=== PATIENT | male | born 1965 | race Caucasian/White ===

== ENCOUNTER → 2016-11-23 | Outpatient (CLI) | payer OTHER ==
[~2016-11-23] VITALS: Ht 172.7 cm; Wt 108.8 kg
[~2016-11-23] MED LIST: ALEVE220 MG PO; FLOMAX0.4 MG PO; GLUCOPHAGE500 MG PO; LOSARTAN POTASS25 MG PO; NORVASC5 MG PO; TACLONEX SUSPEN60 GM TP; XARELTO15 MG PO; XARELTO20 MG PO
== END | disposition home or self-care (01) ==
LOC: AMB 07:00
PROC: 0DJD8ZZ Inspection of Lower Intestinal Tract, Via Natural or Artificial Opening Endoscopic (ICD-10-PCS; principal; 2016-11-23)
DX: Z12.11 Encounter for screening for malignant neoplasm of colon (principal); K57.30 Diverticulosis of large intestine without perforation or abscess without bleeding; K64.8 Other hemorrhoids; Z86.711 Personal history of pulmonary embolism; Z79.01 Long term (current) use of anticoagulants; R00.0 Tachycardia, unspecified
CPT/HCPCS: J2250; J3010

== ENCOUNTER 2016-12-06 11:47 | Inpatient (IN) | payer OTHER ==
[~2016-12-06] VITALS: Ht 172.7 cm; Wt 108.2 kg
[2016-12-06 12:24] LABS: MCH 26.6 PG (29.0-34.0); MCHC 31.7 G/DL (30.0-36.0); MCV 83.9 FL (86-99); MEAN PLAT.VOLUME 9.3 uM^3 (9.0-12.4); PLATELET COUNT 191 K/uL (156-360); RBC DIS.WIDTH-SD 39.5 % (39-53)
[2016-12-06 12:26] LABS: WHITE BLOOD COUNT 19.4 K/uL (4.1-10.2)
[2016-12-06 12:35] LABS: PROTHROMBIN TIME 10.5 (9.2-11.2); PTT 26.1 (25-32)
[2016-12-06 12:36] LABS: CHLORIDE 108 mEq/L (99-109); POTASSIUM 4.7 mEq/L (3.7-5.4); SODIUM 141 mEq/L (136-147)
[2016-12-06 12:38] LABS: GLUCOSE 136 mg/dL (70-99)
[2016-12-06 12:39] LABS: ANION GAP 10 MEQ/L (2-14)
[2016-12-06 12:42] LABS: GFR ESTIMATE (CALCULATED) 48 mL/min/; UREA NITROGEN (BUN) 21 mg/dL (9-23)
[2016-12-06 12:46] LABS: TROP-I INTERPRETATION NEGATIVE; TROPONIN-I < 0.01 ng/mL (0.0-0.30)
[2016-12-06] MEDS ORDERED: NORVASC10 MG PO (14:36)
[2016-12-06 15:36] LABS: THEOPHYLLINE < 2.5 MCG/ML (10-20)
[2016-12-06 17:59] VITALS: BP 143/86
[2016-12-06 20:00] VITALS: BP 124/77
[2016-12-06 20:45] LABS: TROP-I INTERPRETATION NEGATIVE; TROPONIN-I < 0.01 ng/mL (0.0-0.30)
[2016-12-06 23:08] VITALS: BP 123/71
[2016-12-07 01:17] LABS: TROP-I INTERPRETATION NEGATIVE; TROPONIN-I 0.01 ng/mL (0.0-0.30)
[2016-12-07 03:43] LABS: HEMATOCRIT 40.6 % (38.0-50.0); MCV 84.2 FL (86-99); MEAN PLAT.VOLUME 9.7 uM^3 (9.0-12.4); PLATELET COUNT 186 K/uL (156-360); RBC DIS.WIDTH-CV 13.1 % (11.8-14.6); RED BLOOD COUNT 4.82 M/uL (4.00-5.50); WHITE BLOOD COUNT 19.2 K/uL (4.1-10.2)
[2016-12-07 04:12] VITALS: BP 106/57
[2016-12-07 08:00] VITALS: BP 130/83
[2016-12-07 13:17] VITALS: BP 135/84
[2016-12-07 17:06] LABS: INTER. NORMALIZED RATIO 1.1; PROTHROMBIN TIME 11.3 (9.2-11.2); PTT 47.4 (25-32)
[2016-12-07 18:31] VITALS: BP 133/80
[2016-12-07 19:25] VITALS: BP 138/87
[2016-12-07 23:35] VITALS: BP 130/82
[2016-12-07 23:46] LABS: INTER. NORMALIZED RATIO 1.1; PROTHROMBIN TIME 11.4 (9.2-11.2); PTT 55.5 (25-32)
[2016-12-08 04:26] VITALS: BP 137/80
[2016-12-08 06:48] LABS: EOSINOPHIL (%) 2.4 % (0-5); EOSINOPHIL COUNT 0.3 K/uL (0-0.3); HEMATOCRIT 40.9 % (38.0-50.0); IMMATURE GRANULOCYTE (%) 0.6 % (0.0-0.7); IMMATURE GRANULOCYTE COUNT 0.1 K/uL; INSTRUMENT ABS NEUTROPHIL CT 8.8 K/uL; LYMPHOCYTE COUNT 2.5 K/uL (1.0-2.8); MCH 26.3 PG (29.0-34.0); MCHC 31.1 G/DL (30.0-36.0); MCV 84.7 FL (86-99); MEAN PLAT.VOLUME 9.6 uM^3 (9.0-12.4); MONOCYTE (%) 6.5 % (3-12); MONOCYTE COUNT 0.8 K/uL (0-0.8); NEUTROPHIL (%) 70.3 % (45-76); NEUTROPHIL COUNT 8.8 K/uL (1.8-6.4); PLATELET COUNT 168 K/uL (156-360); RBC DIS.WIDTH-CV 12.8 % (11.8-14.6); RBC DIS.WIDTH-SD 39.4 % (39-53); RED BLOOD COUNT 4.83 M/uL (4.00-5.50)
[2016-12-08 06:51] LABS: WHITE BLOOD COUNT 12.6 K/uL (4.1-10.2)
[2016-12-08 07:07] LABS: ANION GAP 7 MEQ/L (2-14); CHLORIDE 107 MEQ/L (99-109); GFR ESTIMATE (CALCULATED) 56 mL/min/; GLUCOSE 108 mg/dL (70-99); POTASSIUM 4.2 MEQ/L (3.7-5.4); SAMPLE HEMOLYSIS CHECK 0; SAMPLE ICTERIC CHECK 0; SAMPLE LIPEMIA CHECK 0; SODIUM 139 MEQ/L (136-147); UREA NITROGEN (BUN) 16 mg/dL (9-23)
[2016-12-08 08:57] VITALS: BP 116/74
[2016-12-08 11:14] VITALS: BP 127/79
[2016-12-08 16:05] VITALS: BP 130/90
[2016-12-08 19:30] VITALS: BP 147/86
[2016-12-09 03:59] VITALS: BP 129/78
[2016-12-09 06:37] LABS: EOSINOPHIL (%) 1.8 % (0-5); EOSINOPHIL COUNT 0.2 K/uL (0-0.3); HEMATOCRIT 40.3 % (38.0-50.0); IMMATURE GRANULOCYTE (%) 0.6 % (0.0-0.7); IMMATURE GRANULOCYTE COUNT 0.1 K/uL; INSTRUMENT ABS NEUTROPHIL CT 8.7 K/uL; LYMPHOCYTE COUNT 2.9 K/uL (1.0-2.8); MCH 26.6 PG (29.0-34.0); MCHC 31.5 G/DL (30.0-36.0); MCV 84.3 FL (86-99); MEAN PLAT.VOLUME 9.8 uM^3 (9.0-12.4); MONOCYTE (%) 6.1 % (3-12); MONOCYTE COUNT 0.8 K/uL (0-0.8); NEUTROPHIL (%) 68.7 % (45-76); NEUTROPHIL COUNT 8.7 K/uL (1.8-6.4); PLATELET COUNT 179 K/uL (156-360); RBC DIS.WIDTH-CV 12.9 % (11.8-14.6); RBC DIS.WIDTH-SD 39.5 % (39-53); RED BLOOD COUNT 4.78 M/uL (4.00-5.50); WHITE BLOOD COUNT 12.7 K/uL (4.1-10.2)
[2016-12-09 06:48] LABS: INTER. NORMALIZED RATIO 1.1; PROTHROMBIN TIME 11.4 (9.2-11.2)
[2016-12-09 07:05] LABS: ANION GAP 9 MEQ/L (2-14); CHLORIDE 106 MEQ/L (99-109); GFR ESTIMATE (CALCULATED) > 59 mL/min/; GLUCOSE 107 mg/dL (70-99); POTASSIUM 4.1 MEQ/L (3.7-5.4); SAMPLE HEMOLYSIS CHECK 0; SAMPLE ICTERIC CHECK 0; SAMPLE LIPEMIA CHECK 0; SODIUM 139 MEQ/L (136-147); UREA NITROGEN (BUN) 16 mg/dL (9-23)
[2016-12-09 07:15] VITALS: BP 144/71
[2016-12-09 08:55] VITALS: BP 138/89
[2016-12-09 11:30] VITALS: BP 135/86
[2016-12-09] MEDS ORDERED: ELIQUIS5 MG PO (13:38)
== END 2016-12-09 16:18 | disposition home or self-care (01) | DRG 175 ==
LOC: EME 11:47 → 4EAST 14:16 → EDOF 14:16 → 4EAST 17:38
PROVIDERS: Internal Medicine; Nurse Practitioner Adult Health; Nurse Practitioner Family; Student in an Organized Health Care Education/Training Program
DX: I26.99 Other pulmonary embolism without acute cor pulmonale (principal); J96.01 Acute respiratory failure with hypoxia; I82.531 Chronic embolism and thrombosis of right popliteal vein; I12.9 Hypertensive chronic kidney disease with stage 1 through stage 4 chronic kidney disease, or unspecified chronic kidney disease; N18.3 Chronic kidney disease, stage 3 (moderate); R55 Syncope and collapse; J98.11 Atelectasis; Z86.711 Personal history of pulmonary embolism; Z79.01 Long term (current) use of anticoagulants
CPT/HCPCS: 71010; 71275; 80048; 80198; 81240 90; 83090 90; 83880; 84484; 85025; 85027; 85240 90; 85300 90; 85303 90; 85305 90; 85306 90; 85379; 85610; 85613 90; 85730; 85730 90; 86146 90; 86147 90; 93005; 93306; 93970; 94799; 99281; 99285; J7030

== ENCOUNTER 2016-12-12 10:29 | Inpatient (IN) | payer OTHER ==
[~2016-12-12] VITALS: Ht 172.7 cm; Wt 111.2 kg
[~2016-12-12 10:29] MED LIST changes: +ELIQUIS5 MG PO; +NORVASC10 MG PO
[2016-12-12 11:48] LABS: HEMATOCRIT 44.1 % (38.0-50.0); MCH 26.3 PG (29.0-34.0); MCHC 31.5 G/DL (30.0-36.0); MCV 83.4 FL (86-99); MEAN PLAT.VOLUME 9.7 uM^3 (9.0-12.4); PLATELET COUNT 217 K/uL (156-360); RBC DIS.WIDTH-SD 39.4 % (39-53); RED BLOOD COUNT 5.29 M/uL (4.00-5.50); WHITE BLOOD COUNT 25.5 K/uL (4.1-10.2)
[2016-12-12 12:23] LABS: TROP-I INTERPRETATION NEGATIVE; TROPONIN-I < 0.01 ng/mL (0.0-0.30)
[2016-12-12 13:05] LABS: ANION GAP 12 MEQ/L (2-14); CHLORIDE 106 MEQ/L (99-109); POTASSIUM 4.7 MEQ/L (3.7-5.4); SAMPLE HEMOLYSIS CHECK 0; SAMPLE ICTERIC CHECK 0; SAMPLE LIPEMIA CHECK 0; SODIUM 138 MEQ/L (136-147)
[2016-12-12 13:13] LABS: GFR ESTIMATE (CALCULATED) 52 mL/min/; GLUCOSE 193 mg/dL (70-99); UREA NITROGEN (BUN) 21 mg/dL (9-23)
[2016-12-12] MEDS ORDERED: ELIQUIS5 MG PO (15:48)
[2016-12-12 16:01] LABS: ADD MIUA? YES; BILIRUBIN NEGATIVE; BLOOD MODERATE; COLOR YELLOW ((YELLOW)); GLUCOSE (STRIP) 50; KETONES 5; LEUKOCYTES NEGATIVE; NITRITE NEGATIVE; PROTEIN (STRIP) 30; SPECIFIC GRAVITY 1.031 (1.000-1.030); UROBILINOGEN 0.2 MG/DL (0.2-1.0)
[2016-12-12 16:35] VITALS: BP 114/69
[2016-12-12 16:58] LABS: BACTERIA RARE /HPF; EPITHELIAL CELLS NONE SEEN /HPF; MUCUS TRACE /LPF; UCUL ADDED? NO; WHITE BLOOD CELLS 0-5 /HPF (0-5)
[2016-12-12 19:17] VITALS: BP 128/65
[2016-12-12 20:49] LABS: INFLUENZA A VIRAL ANTIGEN NEGATIVE; INFLUENZA B VIRAL ANTIGEN NEGATIVE
[2016-12-13] VITALS: BP 106/63
[2016-12-13 03:44] VITALS: BP 115/61
[2016-12-13 07:12] LABS: HEMATOCRIT 38.9 % (38.0-50.0); MCHC 31.9 G/DL (30.0-36.0); MCV 84.7 FL (86-99); MEAN PLAT.VOLUME 9.5 uM^3 (9.0-12.4); PLATELET COUNT 198 K/uL (156-360); RBC DIS.WIDTH-CV 13.2 % (11.8-14.6); RBC DIS.WIDTH-SD 40.9 % (39-53); RED BLOOD COUNT 4.59 M/uL (4.00-5.50)
[2016-12-13 07:41] VITALS: BP 120/67
[2016-12-13 09:58] LABS: CHLORIDE 108 mEq/L (99-109); POTASSIUM 4.2 mEq/L (3.7-5.4); SODIUM 141 mEq/L (136-147)
[2016-12-13 09:59] LABS: GLUCOSE 134 mg/dL (70-99)
[2016-12-13 10:01] LABS: ANION GAP 12 MEQ/L (2-14)
[2016-12-13 10:03] LABS: GFR ESTIMATE (CALCULATED) 52 mL/min/
[2016-12-13 10:04] LABS: UREA NITROGEN (BUN) 20 mg/dL (9-23)
[2016-12-13 11:08] VITALS: BP 110/77
[2016-12-13 14:32] VITALS: BP 116/69
[2016-12-13 19:23] VITALS: BP 123/75
[2016-12-14 03:38] VITALS: BP 146/84
[2016-12-14 06:28] LABS: HEMATOCRIT 39.6 % (38.0-50.0); MCHC 31.6 G/DL (30.0-36.0); MCV 85.5 FL (86-99); MEAN PLAT.VOLUME 9.4 uM^3 (9.0-12.4); PLATELET COUNT 212 K/uL (156-360); RBC DIS.WIDTH-CV 13.1 % (11.8-14.6); RBC DIS.WIDTH-SD 40.5 % (39-53); RED BLOOD COUNT 4.63 M/uL (4.00-5.50)
[2016-12-14 06:30] LABS: WHITE BLOOD COUNT 12.9 K/uL (4.1-10.2)
[2016-12-14 06:39] LABS: ANION GAP 7 MEQ/L (2-14); CHLORIDE 106 MEQ/L (99-109); GFR ESTIMATE (CALCULATED) 48 mL/min/; GLUCOSE 144 mg/dL (70-99); POTASSIUM 4.3 MEQ/L (3.7-5.4); SAMPLE HEMOLYSIS CHECK 0; SAMPLE ICTERIC CHECK 0; SAMPLE LIPEMIA CHECK 0; SODIUM 139 MEQ/L (136-147); UREA NITROGEN (BUN) 25 mg/dL (9-23)
[2016-12-14 07:33] VITALS: BP 118/78
[2016-12-14] MEDS ORDERED: LEVOFLOXACIN750 MG PO (09:26)
[2016-12-14 11:09] VITALS: BP 124/69
[2016-12-14 17:00] VITALS: BP 119/74
== END 2016-12-14 17:54 | disposition home or self-care (01) | DRG 202 ==
LOC: EME 10:29 → EDOF 15:05 → 5SOUTH 15:05
PROVIDERS: Emergency Medicine; Internal Medicine
DX: J20.9 Acute bronchitis, unspecified (principal); J96.01 Acute respiratory failure with hypoxia; I26.92 Saddle embolus of pulmonary artery without acute cor pulmonale; J98.11 Atelectasis; I12.9 Hypertensive chronic kidney disease with stage 1 through stage 4 chronic kidney disease, or unspecified chronic kidney disease; N18.3 Chronic kidney disease, stage 3 (moderate); Z86.718 Personal history of other venous thrombosis and embolism; Z79.01 Long term (current) use of anticoagulants; R33.9 Retention of urine, unspecified
CPT/HCPCS: 71010; 71020; 71275; 80048; 81003; 82948; 84484; 85027; 87070; 87205; 87502; 93005; 94640; 94799; 99281; 99284